=== PATIENT | female | born 1980 | race Caucasian/White ===

== ENCOUNTER → 2016-08-09 | Outpatient (CLI) | payer OTHER ==
[~2016-08-09] MED LIST: LEVO150T PO; NORE-39 PO
[2016-08-09 17:09] LABS: PREG INTERNAL NEGATIVE QC NEG CLEAR BACKGROUND; PREG INTERNAL POSITIVE QC POS CONTROL LINE
[2016-08-09 17:31] LABS: ALT/SGPT 19 U/L (12-78); AST/SGOT 7 U/L (15-37); BLOOD UREA NITROGEN 15 mg/dl (7-18); BUN/CREATININE RATIO 16.3 (10-20); CALCIUM 8.2 mg/dl (8.5-10.1); CARBON DIOXIDE 28 mmol/L (21-32); CHLORIDE 107 mmol/L (98-107); CREATININE 0.94 mg/dl (0.60-1.20); GLUCOSE 82 mg/dl (70-99); POTASSIUM 3.9 mmol/L (3.5-5.1); SODIUM 142 mmol/L (136-145)
[2016-08-09 17:42] LABS: ALB/GLOB RATIO 1.1 (0.9-2); ALKALINE PHOSPHATASE 68 U/L (45-117); THYROID STIMULATING HORMONE 0.316 uIu/ml (0.300-4.500)
[2016-08-11 16:05] LABS: THYROGLOBULIN 0.3 NG/ML (2.8-40.9)
== END | disposition home or self-care (01) ==
LOC: C.LAB 15:34
PROVIDERS: ATTEND Obstetrics & Gynecology
DX: N92.6 Irregular menstruation, unspecified (principal); C73 Malignant neoplasm of thyroid gland

== ENCOUNTER → 2016-12-16 | Outpatient (CLI) | payer OTHER ==
[2016-12-16 10:24] LABS: THYROID STIMULATING HORMONE 4.62 uIu/ml (0.300-4.500)
== END | disposition home or self-care (01) ==
LOC: C.LAB 08:59
PROVIDERS: ATTEND Internal Medicine Endocrinology, Diabetes & Metabolism
DX: E89.0 Postprocedural hypothyroidism (principal)

== ENCOUNTER → 2017-10-19 | Outpatient (CLI) | payer OTHER ==
[2017-10-19 10:26] LABS: ALBUMIN 3.6 gm/dl (3.4-5.0); ALKALINE PHOSPHATASE 61 U/L (45-117); ALT/SGPT 21 U/L (12-78); AST/SGOT 15 U/L (15-37); BLOOD UREA NITROGEN 11 mg/dl (7-18); CALCIUM 8.7 mg/dl (8.5-10.1); CARBON DIOXIDE 27 mmol/L (21-32); CREATININE 0.81 mg/dl (0.60-1.20); GLUCOSE 100 mg/dl (70-99); POTASSIUM 4.2 mmol/L (3.5-5.1); SODIUM 138 mmol/L (136-145); TOTAL PROTEIN 7.2 gm/dl (6.4-8.2)
== END | disposition home or self-care (01) ==
LOC: C.LAB 08:50
PROVIDERS: ATTEND Internal Medicine Endocrinology, Diabetes & Metabolism
DX: E89.0 Postprocedural hypothyroidism (principal); C73 Malignant neoplasm of thyroid gland; E28.2 Polycystic ovarian syndrome

== ENCOUNTER 2020-01-23 15:59 | Inpatient (IN) ==
[2020-01-23 16:41] LABS: Basophils # (auto) 0.02 K/uL (0-0.2); Basophils % (auto) 0.2 %; Eosinophils # (auto) 0.46 K/uL (0-0.5); Eosinophils % (auto) 3.6 %; Hemoglobin 12.4 g/dL (12.0-16.0); Immature Granulocytes # (auto) 0.03 K/uL (0.00-0.02); Immature Granulocytes % (auto) 0.2 %; Lymphocytes # (auto) 3.41 K/uL (1.2-3.4); Lymphocytes % (auto) 26.6 %; Mean Corpuscular Hemoglobin 28.6 pg (25-34); Mean Corpuscular Hgb Conc 33.5 g/dL (32-36); Mean Corpuscular Volume 85.3 fL (80-100); Mean Platelet Volume 9.5 fL (7.4-10.4); Monocytes # (auto) 0.99 K/uL (0.11-0.59); Monocytes % (auto) 7.7 %; Neutrophils % (auto) 61.7 %; Platelet Count 329 K/uL (130-400); RDW Coefficient of Variation 14.1 % (11.5-14.5); Red Blood Count 4.34 M/uL (4.2-5.4); White Blood Count 12.81 K/uL (4.8-10.8)
[2020-01-23] MEDS ORDERED: SODIUM CHLORIDE 0.9% 1000ML 1,000 ML IV ONE (16:46)
--- NOTE | 2020-01-23 16:52 | Emergency Department Note ---
Impression & Plan Hypercalcemia, NANCY (acute kidney injury), Weakness ED Provider Note NAME: MARIA T KING AGE: 39 SEX: F : 1980 ARRIVES VIA: Walk-In INFORMANT: [Patient] ED PROVIDER(S): [Devon Ramos MD] CHIEF COMPLAINT: Abnormal labs HISTORY OF PRESENT ILLNESS: The patient is a 39-year-old female who states that this past June, 6 to 7 months ago, she had neck surgery at [place]. Patient had some injury to her parathyroid glands. Patient has had issues with her calcium since. She is on medications for magnesium and calcium supplementation. Patient states that over the last couple of days, she has not quite felt herself. She had a dry mouth, she has been fatigued especially in the evening. She has been slightly nauseated. Today, her tongue was tingly and numb. The patient had lab work drawn and her calcium was high. Her creatinine was high. She does state that because of how she was feeling, she did not take her calcium last night or today. The patient spoke with her doctors office. She sees an biomedical engineering aide in [place]. He referred her here to the ER for IV fluids and repeat laboratory testing. Patient has not had fever, there has been no cough or congestion. She has not short of breath. No urinary complaints. She drinks plenty of fluid on a daily basis and her urine has been clear to yellow in color. REVIEW OF SYSTEMS: See HPI for pertinent positives and negatives. A total of ten systems were reviewed and were otherwise negative. PMHx/PSHx: See Below SOCIAL HISTORY: See Below. PHYSICAL EXAM: GENERAL: Patient is in no acute distress. HEENT: No acute trauma, normocephalic atraumatic, mucous membranes moist, no nasal congestion, no scleral icterus. NECK: No stridor, no adenopathy, no meningismus, trachea is midline. LUNGS: Clear to auscultation bilaterally, no wheeze, no rhonchi, breath sounds equal. HEART: Without murmurs gallops or rubs, regular rate and rhythm. ABDOMEN: Soft, nontender, bowel sounds positive, no hernias, no peritonitis. EXTREMITIES: No cyanosis or edema, full range of motion of all the joints without pain or difficulty, no signs for acute trauma. NEUROLOGIC: Oriented x 3, no acute motor or sensory deficits, no focal weakness. SKIN: No rash, no jaundice, no diaphoresis. DIFFERENTIAL DIAGNOSIS: Infection, dehydration, metabolic abnormality, hypo/hyperglycemia, h ypercalcemia, renal failure, acute kidney injury, UTI, electrolyte disturbance, anemia, hypoxia, cardiac sources, intracerebral event, toxicologic, neurologic, as well as other pathologies. EMERGENCY DEPARTMENT COURSE/PROCEDURES: ECG: Indication was weakness. The ECG shows a normal sinus rhythm with a rate of 75. There is no ST elevation, no PVCs. The QTc is 410. Continuous Cardiac Monitoring: An order was placed for continuous cardiac monitoring. The monitor shows a rate of 77 with normal sinus rhythm. MEDICAL DECISION MAKING: There is a mild leukocytosis with a white count of 12.8, this could be consisten t with infection or the stress of her situation. There is no anemia. There is a normal platelet count. The patient does have an elevation of her creatinine at 2.66. Her calcium is quite high at 12.5. Ionized calcium is elevated at 1.44. There is no liver enzyme elevation. The patient appears to be in a euthyroid state. testing is negative. Urinalysis shows some contamination, no obvious infection. ECG shows a sinus rhythm, no acute ischemia Patient received IV saline, 1.5 L. She is currently comfortable. Patient presents with a critically high calcium. She has acute kidney injury. I do think she requires further hydration and care. Hospitalization is warranted. I spoke to the patient, I talked with case management. The on-call hospitalist was consulted. Past Med/Surg History Medical History Abnormal uterine and vaginal bleeding, unspecified Abnormal uterine bleeding Cancer THYROID CANCER WITH 2 ROUNDS OF RADIOACTIVE IODINE. 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 Gestational diabetes Hypertension Pre-eclampsia PVCs (premature ventricular contractions) OCCASIONAL Surgical History (Updated 01/23/20 @ 19:58 by Jignesh Plascencia MD) H/O bilateral salpingectomy History of arthroscopy LEFT KNEE History of carpal tunnel release BILATERAL History of dilatation and curettage History of esophagogastroduodenoscopy (EGD) WITH EUS History of thyroidectomy, total 2006 @ [facility] Nausea and vomiting after administration of anesthetic agent S/P cholecystectomy S/P lymph node biopsy REMOVAL OF 5 LYMPH NODES IN THE NECK (2008) [facility] S/P T&A (status post tonsillectomy and adenoidectomy) S/P wisdom tooth extraction Status post neck dissection Status post surgery BRACHIOPLASTY Family History (Updated 12/11/18 @ 10:10 by Nancy Chavarria MD, FACOG) Grandmother (Paternal) Family hx of colon cancer Colorectal cancer Pancreatic cancer Heart disease Grandfather (Maternal) Family hx of colon cancer Basal cell adenocarcinoma Prostate cancer Heart disease Grandmother (Maternal) Family history of diabetes mellitus Colorectal cancer Diabetes Alzheimer disease Mother Alkaptonuria Leiomyoma of uterus Dyslipidemia Grandfather (Paternal) Brain cancer Other Hypertension Social History Smoking Status: Never smoker Second Hand Exposure: No; Hx Alcohol Use: No Hx Substance Use: No Preferred Language: Bengali Communication Ability: Effective Exchange Underwriting Consultant Required: No Beliefs That Will Affect Care: None Current Living Situation: Family Feels Safe at Home: Yes Assistive Devices: None Allergies Allergies Allergy/AdvReac Type Severity Reaction Status Date / Time morphine AdvReac Severe N/V Verified 01/23/20 17:10 Home Meds Home Medications Medication Instructions Recorded Confirmed liothyronine [Cytomel] 10 mcg PO QAM 08/27/18 01/23/20 metoprolol succinate 25 mg PO QAM 08/27/18 01/23/20 levonorgestrel 20 mcg/24 hours (6 1 device IU CONTINOUS ea 11/12/18 01/23/20 yrs) 52 mg intrauterine device Lactobacillus acidophilus 10,000 mmu cells PO HS 01/23/20 01/23/20 [Probiotic] calcitriol 0.5 mcg PO BID 01/23/20 01/23/20 calcium carbonate [Calcium 600] 600 mg PO TID 01/23/20 01/23/20 calcium carbonate [Tums] 200 mg PO DIRECTED PRN 01/23/20 01/23/20 levothyroxine 112 mcg PO QAM 01/23/20 01/23/20 loratadine 10 mg PO DAILY 01/23/20 01/23/20 magnesium oxide 400 mg PO TID 01/23/20 01/23/20 multivitamin 1 tab PO HS 01/23/20 01/23/20 Results & Data (ED) Vital Signs Vital Signs - 24 hr 01/23/20 16:04 01/23/20 17:24 01/23/20 17:30 Temperature 37.1 C Temperature Source Oral Pulse Rate 74 67 71 Pulse Rate [Left] Pulse Rhythm Regular Pulse Strength Normal Respiratory Rate 20 17 19 Respiratory Effort / Characteristics Non-Labored Spontaneous Respiratory Depth Normal Respiratory Pattern Regular Blood Pressure 195/105 H Blood Pressure [Right Arm] Blood Pressure Mean 135 Blood Pressure Mean [Right Arm] Blood Pressure Position Sitting Blood Pressure Position [Right Arm] Pulse Oximetry 98 Oxygen Delivery Method Room Air Sepsis Recent Fever Within 48 Hours No Sepsis New/Unexplained Change in Mental Status No Sepsis Action Taken by Nursing No Action Required 01/23/20 17:40 01/23/20 17:50 01/23/20 18:00 Temperature Temperature Source Pulse Rate 61 75 69 Pulse Rate [Left] Pulse Rhythm Pulse Strength Respiratory Rate 21 22 18 Respiratory Effort / Characteristics Respiratory Depth Respiratory Pattern Blood Pressure 148/89 H Blood Pressure [Right Arm] Blood Pressure Mean 105 Blood Pressure Mean [Right Arm] Blood Pressure Position Blood Pressure Position [Right Arm] Pulse Oximetry Oxygen Delivery Method Sepsis Recent Fever Within 48 Hours Sepsis New/Unexplained Change in Mental Status Sepsis Action Taken by Nursing 01/23/20 18:08 01/23/20 18:10 01/23/20 18:20 Temperature Temperature Source Pulse Rate 69 66 Pulse Rate [Left] 75 Pulse Rhythm Pulse Strength Respiratory Rate 18 19 21 Respiratory Effort / Characteristics Non-Labored Spontaneous Respiratory Depth Normal Respiratory Pattern Blood Pressure Blood Pressure [Right Arm] 148/89 H Blood Pressure Mean Blood Pressure Mean [Right Arm] 108 Blood Pressure Position Blood Pressure Position [Right Arm] Lying Pulse Oximetry 99 Oxygen Delivery Method Room Air Sepsis Recent Fever Within 48 Hours Sepsis New/Unexplained Change in Mental Status Sepsis Action Taken by Nursing 01/23/20 18:30 01/23/20 18:40 01/23/20 19:33 Temperature Temperature Source Pulse Rate 71 81 74 Pulse Rate [Left] Pulse Rhythm Pulse Strength Respiratory Rate 20 17 17 Respiratory Effort / Characteristics Respiratory Depth Respiratory Pattern Blood Pressure Blood Pressure [Right Arm] Blood Pressure Mean Blood Pressure Mean [Right Arm] Blood Pressure Position Blood Pressure Position [Right Arm] Pulse Oximetry Oxygen Delivery Method Sepsis Recent Fever Within 48 Hours Sepsis New/Unexplained Change in Mental Status Sepsis Action Taken by Nursing 01/23/20 19:40 01/23/20 19:41 01/23/20 19:50 Temperature Temperature Source Pulse Rate 72 71 77 Pulse Rate [Left] Pulse Rhythm Pulse Strength Respiratory Rate 23 16 24 Respiratory Effort / Characteristics Respiratory Depth Respiratory Pattern Blood Pressure 169/100 H Blood Pressure [Right Arm] Blood Pressure Mean 107 Blood Pressure Mean [Right Arm] Blood Pressure Position Blood Pressure Position [Right Arm] Pulse Oximetry 97 Oxygen Delivery Method Room Air Sepsis Recent Fever Within 48 Hours Sepsis New/Unexplained Change in Mental Status Sepsis Action Taken by Nursing 01/23/20 20:00 01/23/20 20:10 01/23/20 20:20 Temperature Temperature Source Pulse Rate 80 73 71 Pulse Rate [Left] Pulse Rhythm Pulse Strength Respiratory Rate 19 15 16 Respiratory Effort / Characteristics Respiratory Depth Respiratory Pattern Blood Pressure Blood Pressure [Right Arm] Blood Pressure Mean Blood Pressure Mean [Right Arm] Blood Pressure Position Blood Pressure Position [Right Arm] Pulse Oximetry Oxygen Delivery Method Sepsis Recent Fever Within 48 Hours Sepsis New/Unexplained Change in Mental Status Sepsis Action Taken by Nursing 01/23/20 20:30 01/23/20 20:40 01/23/20 20:50 Temperature Temperature Source Pulse Rate 81 71 71 Pulse Rate [Left] Pulse Rhythm Pulse Strength Respiratory Rate 20 23 22 Respiratory Effort / Characteristics Respiratory Depth Respiratory Pattern Blood Pressure Blood Pressure [Right Arm] Blood Pressure Mean Blood Pressure Mean [Right Arm] Blood Pressure Position Blood Pressure Position [Right Arm] Pulse Oximetry Oxygen Delivery Method Sepsis Recent Fever Within 48 Hours Sepsis New/Unexplained Change in Mental Status Sepsis Action Taken by Nursing 01/23/20 21:00 Temperature Temperature Source Pulse Rate 78 Pulse Rate [Left] Pulse Rhythm Pulse Strength Respiratory Rate 17 Respiratory Effort / Characteristics Respiratory Depth Respiratory Pattern Blood Pressure Blood Pressure [Right Arm] Blood Pressure Mean Blood Pressure Mean [Right Arm] Blood Pressure Position Blood Pressure Position [Right Arm] Pulse Oximetry Oxygen Delivery Method Sepsis Recent Fever Within 48 Hours Sepsis New/Unexplained Change in Mental Status Sepsis Action Taken by Group Home Medications Current Medication List: was personally reviewed by me Laboratory Data Attestation: I reviewed the patient's lab results. Result diagrams: 01/23/20 16:21 01/23/20 17:17 Lab Results 01/23/20 01/23/20 01/23/20 Range/Units 16:21 16:21 17:17 WBC 12.81 H (4.8-10.8) K/uL RBC 4.34 (4.2-5.4) M/uL Hgb 12.4 (12.0-16.0) g/dL Hct 37.0 (37-47) % MCV 85.3 (80-100) fL MCH 28.6 (25-34) pg MCHC 33.5 (32-36) g/dL RDW Std Deviation 44.0 (36.4-46.3) fL RDW Coeff of Angelica 14.1 (11.5-14.5) % Plt Count 329 (130-400) K/uL MPV 9.5 (7.4-10.4) fL Immature Gran % (Auto) 0.2 % Neut % (Auto) 61.7 % Lymph % (Auto) 26.6 % [place] % (Auto) 7.7 % Eos % (Auto) 3.6 % Baso % (Auto) 0.2 % Neut # (Auto) 7.90 H (1.4-6.5) K/uL Lymph # (Auto) 3.41 H (1.2-3.4) K/uL [place] # (Auto) 0.99 H (0.11-0.59) K/uL Eos # (Auto) 0.46 (0-0.5) K/uL Baso # (Auto) 0.02 (0-0.2) K/uL Immature Gran # (Auto) 0.03 H (0.00-0.02) K/uL Sodium 138 (136-145) mmol/L Potassium (3.5-5.1) mmol/L Chloride 100 (98-107) mmol/L Carbon Dioxide 30 (21-32) mmol/L Anion Gap 8.0 (3-11) BUN 32 H (7-18) mg/dl Creatinine 2.66 H D (0.6-1.2) mg/dl Est Cr Clr Drug Dosing 37.4 ml/min Est GFR ( Amer) 25.0 Est GFR (Non-Af Amer) 21.6 BUN/Creatinine Ratio 12.1 (10-20) Glucose 90 (70-99) mg/dl Calcium 12.5 H* (8.5-10.1) mg/dl Ionized Calcium (1.12-1.32) mmol/L Magnesium (1.8-2.4) mg/dl Total Bilirubin 0.4 (0.2-1) mg/dl AST (15-37) U/L ALT 29 (12-78) U/L Alkaline Phosphatase 59 (45-117) U/L Total Protein 7.6 (6.4-8.2) gm/dl Albumin 3.6 (3.4-5.0) gm/dl Globulin 4.0 (2.5-4.0) gm/dl Albumin/Globulin Ratio 0.9 (0.9-2) TSH 1.030 (0.300-4.500) uIu/ml HCG, Qual Negative (Negative) Urine Color Urine Appearance (Clear) Urine pH (4.5-7.5) Ur Specific [place] (1.000-1.030) Urine Protein (Negative) Urine Glucose (UA) (Negative) Urine Ketones (Negative) Urine Blood (Negative) Urine Nitrite (Negative) Urine Bilirubin (Negative) Urine Urobilinogen (Negative) Ur Leukocyte Esterase (Negative) Urine WBC (Auto) (0-5) /hpf Urine RBC (Auto) (0-4) /hpf U Hyaline Cast (Auto) (0-5) /lpf U Epithel Cells (Auto) (0-5) /lpf Urine Bacteria (Auto) (Negative) 01/23/20 01/23/20 01/23/20 Range/Units 17:17 17:17 18:45 WBC (4.8-10.8) K/uL RBC (4.2-5.4) M/uL Hgb (12.0-16.0) g/dL Hct (37-47) % MCV (80-100) fL MCH (25-34) pg MCHC (32-36) g/dL RDW Std Deviation (36.4-46.3) fL RDW Coeff of Angelica (11.5-14.5) % Plt Count (130-400) K/uL MPV (7.4-10.4) fL Immature Gran % (Auto) % Neut % (Auto) % Lymph % (Auto) % [place] % (Auto) % Eos % (Auto) % Baso % (Auto) % Neut # (Auto) (1.4-6.5) K/uL Lymph # (Auto) (1.2-3.4) K/uL [place] # (Auto) (0.11-0.59) K/uL Eos # (Auto) (0-0.5) K/uL Baso # (Auto) (0-0.2) K/uL Immature Gran # (Auto) (0.00-0.02) K/uL Sodium (136-145) mmol/L Potassium 3.5 (3.5-5.1) mmol/L Chloride (98-107) mmol/L Carbon Dioxide (21-32) mmol/L Anion Gap (3-11) BUN (7-18) mg/dl Creatinine (0.6-1.2) mg/dl Est Cr Clr Drug Dosing ml/min Est GFR ( Amer) Est GFR (Non-Af Amer) BUN/Creatinine Ratio (10-20) Glucose (70-99) mg/dl Calcium (8.5-10.1) mg/dl Ionized Calcium 1.44 H (1.12-1.32) mmol/L Magnesium 2.3 (1.8-2.4) mg/dl Total Bilirubin (0.2-1) mg/dl AST 18 (15-37) U/L ALT (12-78) U/L Alkaline Phosphatase (45-117) U/L Total Protein (6.4-8.2) gm/dl Albumin (3.4-5.0) gm/dl Globulin (2.5-4.0) gm/dl Albumin/Globulin Ratio (0.9-2) TSH (0.300-4.500) uIu/ml HCG, Qual (Negative) Urine Color Yellow Urine Appearance Clear (Clear) Urine pH 6.0 (4.5-7.5) Ur Specific [place] 1.012 (1.000-1.030) Urine Protein Negative (Negative) Urine Glucose (UA) Negative (Negative) Urine Ketones Negative (Negative) Urine Blood Trace H (Negative) Urine Nitrite Negative (Negative) Urine Bilirubin Negative (Negative) Urine Urobilinogen Negative (Negative) Ur Leukocyte Esterase Trace H (Negative) Urine WBC (Auto) 5-10 H (0-5) /hpf Urine RBC (Auto) 0-4 (0-4) /hpf U Hyaline Cast (Auto) 1-5 (0-5) /lpf U Epithel Cells (Auto) >30 H (0-5) /lpf Urine Bacteria (Auto) Negative (Negative) Administered Medications Discontinued Medications Sodium Chloride (Nss 1000ml) 1,000 mls @ 999 mls/hr IV .Q1H1M ONE Stop: 01/23/20 17:46 Last Infusion: 01/23/20 18:39 Dose: 0 mls/hr Documented by: [id number] Admin: 01/23/20 17:20 Dose: 999 mls/hr Documented by: [id number] Sodium Chloride (Nss 1000ml) 500 mls @ 999 mls/hr IV .Q31M ONE Stop: 01/23/20 17:55 Last Infusion: 01/23/20 19:42 Dose: 0 mls/hr Documented by: [id number] Admin: 01/23/20 18:52 Dose: 999 mls/hr Documented by: [id number] Discharge Plan Visit Data Chief Complaint: Abnormal Labs/Diagnostic Testing Stated Complaint: ELEVATED CALCIUM LEVELS ED Provider: Devon Ramos Discharge Problem: Hypercalcemia, NANCY (acute kidney injury), Weakness Patient Disposition: Admitted As Inpatient Condition: Good Forms Stand Alone Forms: [facility] Prescriptions Prescriptions: No Action Mirena 20 mcg/24 hours (5 yrs) 52 mg intrauterine device 1 device IU CONTINOUS RF: 0 liothyronine [Cytomel] 5 mcg Tablet 10 mcg PO QAM RF: 0 metoprolol succinate 25 mg Tablet Extended Release 24 Hr 25 mg PO QAM RF: 0 levothyroxine 112 mcg Tablet 112 mcg PO QAM RF: 0 multivitamin Tablet 1 tab PO HS RF: 0 calcium carbonate [Calcium 600] 600 mg calcium (1,500 mg) Tablet 600 mg PO TID RF: 0 magnesium oxide 400 mg (241.3 mg magnesium) Tablet 400 mg PO TID RF: 0 calcitriol 0.5 mcg capsule 0.5 mcg PO BID RF: 0 calcium carbonate [Tums] 200 mg calcium (500 mg) Tablet,Chewable 200 mg PO DIRECTED PRN (Reason: EXTRA CALCIUM) RF: 0 loratadine 10 mg Tablet 10 mg PO DAILY RF: 0 Probiotic 10 billion cell Capsule 10,000 mmu cells PO HS RF: 0 Referrals Referrals: PCP,NO [Primary Care Provider] -
--- NOTE | 2020-01-23 16:53 | Electrocardiogram Report ---
Test Reason : Blood Pressure : / mmHG Vent. Rate : 075 BPM Atrial Rate : 075 BPM P-R Int : 144 ms QRS Dur : 092 ms QT Int : 368 ms P-R-T Axes : 025 004 004 degrees QTc Int : 410 ms Normal sinus rhythm Normal ECG When compared with ECG of 09-OCT-2018 15:06, T wave amplitude has decreased in Anterior leads Confirmed by Devante Small ([id number] on 01/23/2020 4:53:27 PM Referred By: SELF Confirmed By:William Small
[2020-01-23 17:04] LABS: Albumin Globulin Ratio 0.9 (0.9-2); Albumin Level 3.6 gm/dl (3.4-5.0); BUN Creatinine Ratio 12.1 (10-20); Bilirubin,Total 0.4 mg/dl (0.2-1); Calcium 12.5 mg/dl (8.5-10.1); Creatinine Clr Calc Pharmacy 37.4 ml/min; Est GFR (Non-African American) 21.6; Total Protein 7.6 gm/dl (6.4-8.2)
[2020-01-23] MEDS ORDERED: SODIUM CHLORIDE 0.9% 1000ML 500 ML IV ONE (17:25)
[2020-01-23 17:35] LABS: Thyroid Stimulating Hormone 1.03 uIu/ml (0.300-4.500)
[2020-01-23 17:41] LABS: Potassium 3.5 mmol/L (3.5-5.1); Pregnancy Test, Serum Negative (Negative)
[2020-01-23 17:46] LABS: Magnesium 2.3 mg/dl (1.8-2.4)
[2020-01-23 19:10] LABS: Appearance Urine Clear (Clear); Bacteria Urine Automated Negative (Negative); Bilirubin Urine Negative (Negative); Blood Urine Trace (Negative); Color Urine Yellow; Epithelial Cell Urine Auto >30 /lpf (0-5); Glucose Urine UA Negative (Negative); Ketones Urine Negative (Negative); Leukocyte Esterase Urine Trace (Negative); Nitrite Urine Negative (Negative); Protein Urine Negative (Negative); Specific Gravity Urine 1.012 (1.000-1.030); Urobilinogen Urine Negative (Negative)
[2020-01-23 19:27] LABS: RBC Urine Automated 0-4 /hpf (0-4)
--- NOTE | 2020-01-23 20:29 | History & Physical Report ---
Date of Service January 23, 2020 Assessment & Plan (1) Hypercalcemia: Sarah is a 39-year-old female with a past medical history of thyroid cancer status post 3 rounds of I 131 and 3 surgical interventions therapy no longer avid last 6 to 7 months ago, preeclampsia gestational diabetes, and iatrogenic parathyroid hypoparathyroidism due to parathyroid removal during thyroid surgery who presents with dry mouth, fatigue, nausea. with concern for hypercalcemia. Hypercalcemia 2/2 over repletion of iatrogenic hypoparathyroidism Patient with 13-year history of thyroid cancer with 3 surgeries, at last surgery she had subsequent development of hypoparathyroid symptoms of hypocalcemia with pathology confirmation that she had had parathyroid damage. She was placed on calcitriol on 08/2019 which was increased to 1 tab twice daily around . She has also been taking 1 g 3 times daily of calcium, magnesium 400 3 times daily, and multivitamin daily in addition to Tums as needed for tingling or muscle spasm prior to admission. -Calcium prior to admission 13.4, down trended to 12.5 with supportive care in ED - Suspect 2/2 excess repletion Ionized calcium elevated at 1.4 TSH 1.03 Received 1500 cc NSS in ED hold calcitriol, calcium supplements -Normosol-R 150 cc/h BMP every 6 hours + Ca Defer bisphosphonates, calcitonin, loop diuretics Hypertension 2/2 hypercalcemia Management as above Acute Kidney Injury by ROOSEVELT/KDIGO, appx 2.5 times increase from baseline value - Baseline <1, acutely elevated Cr to 2.6 - suspect 2/2 acute hypercalcemia - Fluids and aggressive tx as above - Non-oliguric - BMP as above No EKG changes Diet: Calcium, as well as above DVT prophylaxis: Lovenox CODE STATUS: Full code Disposition: Med/Tele (2) Hypothyroid: (3) Parathyroid abnormality: History of Present Illness Chief Complaint: Weakness, Fatigue, Nausea Primary Care Provider: NO PCP Sarah is a 39-year-old female with a past medical history of thyroid cancer status post 3 rounds of I 131 and 3 surgical interventions therapy no longer avid last 6 to 7 months ago, preeclampsia gestational diabetes, and iatrogenic parathyroid hypoparathyroidism due to parathyroid removal during thyroid surgery who presents with dry mouth, fatigue, nausea. with concern for hypercalcemia. Family reports that she has a history of hypothyroidism due to surgical intervention of thyroid cancer. She has had thyroid cancer for 13 years and had 3 rounds of I-131 therapy but is no longer evident. She has also had 3 surgical interventions with her last 6 to 7 months ago. Following her last surgical intervention she developed weakness and fatigue and was found to have hypocalcemia thought to be due to iatrogenic parathyroid removal which was subse quently confirmed by pathology. Started on on 09/07/2019 and was increased from 1 tab daily to 1 tab twice daily in . She has also been on a 1 g calcium supplement 3 times daily, magnesium 400 mg 3 times daily, multivitamin daily in addition to Tums as needed for tingling/muscle spasm. She has her labs and blood work followed by her music video director who is Dr. Toussaint in [facility]. The last week she has developed progressive dry mouth, fatigue, intermittent nausea worsening throughout the day, and dramatic increase in thirst. She normally has loose bowels, and has noted that she has had relatively normal formed bowel movements which is constipated for her. 1 day prior to presentation he fell asleep and was napping in the evening which is highly abnormal for her and she was concerned so she called her physician for lab work which revealed hypercalcemia 13.4 and she was recommended to stop supplements, stop calcitriol, and present to the emergency department for further evaluation and treatment. She had taken 1 calcitriol morning of admission, and had missed a dose the evening prior to presentation. She is not taking any calcium supplements and approximately 36 hours since presentation as she thought her calcium might be off. She denies fever, chills, sweats, cough, shortness of breath, chest pain, chest pressure. Feels globally tired, but has no focal weakness. No vision change. She has been extremely thirsty, and drinking over 10 bottles of water per day since her symptoms started. She has not had no dysuria or hematuria. She reports her son had a runny nose last week, but no other symptoms and no fever. She has not had any sick contacts. Medical history: Reviewed Surgical history: Reviewed, updated Medications: Reviewed Allergies: Reviewed. She has a severe nausea reaction to morphine which is required admission in the past. Family history: Noncontributory Social: Denies tobacco, alcohol, and recreational drug use. She lives at home with her and son. Independently ambulatory. No sick contacts at home, son with a slight runny nose for 1 week. CODE STATUS: Full code Allergies Allergy/AdvReac Type Severity Reaction Status Date / Time morphine AdvReac Severe N/V Verified 01/23/20 17:10 Home Medications Home Medications Medication Instructions Recorded Confirmed Type liothyronine [Cytomel] 10 mcg PO QAM 08/27/18 01/23/20 History metoprolol succinate 25 mg PO QAM 08/27/18 01/23/20 History levonorgestrel 20 mcg/24 hours (6 1 device IU CONTINOUS ea 11/12/18 01/23/20 History yrs) 52 mg intrauterine device Lactobacillus acidophilus 10,000 mmu cells PO HS 01/23/20 01/23/20 History [Probiotic] calcitriol 0.5 mcg PO BID 01/23/20 01/23/20 History calcium carbonate [Calcium 600] 600 mg PO TID 01/23/20 01/23/20 History calcium carbonate [Tums] 200 mg PO DIRECTED PRN 01/23/20 01/23/20 History levothyroxine 112 mcg PO QAM 01/23/20 01/23/20 History loratadine 10 mg PO DAILY 01/23/20 01/23/20 History magnesium oxide 400 mg PO TID 01/23/20 01/23/20 History multivitamin 1 tab PO HS 01/23/20 01/23/20 History Past Med/Surg History Medical History Abnormal uterine and vaginal bleeding, unspecified Abnormal uterine bleeding Cancer THYROID CANCER WITH 2 ROUNDS OF RADIOACTIVE IODINE. 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 Gestational diabetes Hypertension Pre-eclampsia PVCs (premature ventricular contractions) OCCASIONAL Surgical History (Updated 01/23/20 @ 19:58 by Jignesh Plascencia MD) H/O bilateral salpingectomy History of arthroscopy LEFT KNEE History of carpal tunnel release BILATERAL History of dilatation and curettage History of esophagogastroduodenoscopy (EGD) WITH EUS History of thyroidectomy, total 2006 @ [facility] Nausea and vomiting after administration of anesthetic agent S/P cholecystectomy S/P lymph node biopsy REMOVAL OF 5 LYMPH NODES IN THE NECK (2008) [facility] S/P T&A (status post tonsillectomy and adenoidectomy) S/P wisdom tooth extraction Status post neck dissection Status post surgery BRACHIOPLASTY Family History (Updated 12/11/18 @ 10:10 by Nancy Chavarria MD, FACOG) Grandmother (Paternal) Family hx of colon cancer Colorectal cancer Pancreatic cancer Heart disease Grandfather (Maternal) Family hx of colon cancer Basal cell adenocarcinoma Prostate cancer Heart disease Grandmother (Maternal) Family history of diabetes mellitus Colorectal cancer Diabetes Alzheimer disease Mother Alkaptonuria Leiomyoma of uterus Dyslipidemia Grandfather (Paternal) Brain cancer Other Hypertension Social History Smoking Status: Never smoker Second Hand Exposure: No; Do You Dip or Chew Tobacco: No; Hx Alcohol Use: No Hx Substance Use: No Preferred Language: Chadian Communication Ability: Effective Principal Systems Architect Required: No Beliefs That Will Affect Care: None Current Living Situation: Spouse and Family Other Information That Helps Us Care for You: No Feels Safe at Home: Yes Safety Concerns: Feels Safe At This Time Assistive Devices: None Review of Systems Review of Systems: All systems reviewed & are unremarkable except as noted in HPI & below Physical Exam Physical Exam: General: A&Ox3. NAD. Cooperative. HEENT: Atraumatic, normocephalic. Visual acuity grossly intact. No diplopia. Pulm: CTAB A&P. -wheezes, -rales, -rhonchi. Symmetrical chest rise. No increase work of breathing. No respiratory distress. Cardiac: RRR, -mrg. Radial pulses intact and symmetrical. Abdominal: Nontender, nondistended, soft. BS present. CRANIAL NERVES: II: Pupils equal and reactive, no relative afferent pupillary defect, no VF cuts III, IV, : EOM intact, no gaze preference or deviation, no nystagmus. V: normal sensation in V1, V2, and V3 segments bilaterally VII: no asymmetry, no nasolabial fold flattening VIII: normal hearing to speech IX, X: normal palatal elevation, no uvular deviation XI: 5/5 head turn and 5/5 shoulder shrug bilaterally XII: midline tongue protrusion MOTOR: RUE: 5/5 Shoulder internal rotation, external rotation, flexion, extension, abduction, adduction 5/5 Elbow flexion/extension, wrist flexion/extension 5/5 mold maker plaster strength, finger flexion/extension, interosseus LUE: 5/5 Shoulder internal rotation, external rotation, flexion, extension, abduction, adduction 5/5 Elbow flexion/extension, wrist flexion/extension 5/5 mold maker plaster strength, finger flexion/extension, interosseus RLE: 5/5 to hip flexion/extension, knee flexion/extension, ankle dorsiflexion/plantar flexion LLE: 5/5 to hip flexion/extension, knee flexion/extension, ankle dorsiflexion/plantarflexion REFLEXES: 2/4 biceps, and achilles DTR without asymmetry. No clonus. SENSORY: Normal to touch in distal upper and lower extremities without deficit or asymmetry Results & Data Results & Data ([facility]) Vital Signs (Past 12 Hours) Vital Signs Temp Pulse Pulse Resp BP BP Pulse Ox 01/23/20 19:41 71 16 01/23/20 19:40 72 23 169/100 H 97 01/23/20 19:33 74 17 01/23/20 18:40 81 17 01/23/20 18:30 71 20 01/23/20 18:20 66 21 01/23/20 18:10 69 19 01/23/20 18:08 75 18 148/89 H 99 01/23/20 18:00 69 18 01/23/20 17:50 75 22 148/89 H 01/23/20 17:40 61 21 01/23/20 17:30 71 19 01/23/20 17:24 67 17 01/23/20 16:04 37.1 C 74 20 195/105 H 98 Supervising Physician Co-Signing Physician Notes Patient seen and examined, chart reviewed, case discussed with Dr. Plascencia and I agree with his assessment and plan as documented above. Briefly, patient is a 39 year old female with history of thyroid cancer s/p I 131 and surgical intervention complicated by surgical removal with subsequent hypocalcemia. Patient is on calcium supplementation, presents today with moderate hypercalcemia, mildly symptomatic. On exam she is afebrile, HD stable, NAD Skin - warm, dry, intact, no rashes HEENT - NC/AT, PERRL, EOMI, slightly dry mucus membranes Heart - +S1/S2, regular, no m/r/g Lungs - CTA Abd- +BS, soft, NT/ND Ext - No edema Neuro - non-focal Labs and images reviewed significant for Ca=13.4 --> 12.5 with hydration. Ionized calcium = 1.44. BUN=32, Cr=2.66 from normal baseline of 0.93 on 11/15/19 Normal PO4 at 3.4 Assessment/Plan - 39yo C female with history of hypocalcemia secondary to parathyroidectomy presenting with iatrogenic hypercalcemia, NANCY, dehydration -IVF - Normosol 200mL/hr -Trend chemistry, Ca and PO4 q 6 hours -Remainder of plan as above Resident Activity Tracking Resident Involvement: Resident Care Provided Care Provided: Adult Hospital Medicine
[2020-01-23] MEDS ORDERED: ACETAMINOPHEN 325 MG TAB PO PRN (23:00)
[2020-01-23] MEDS: ENOXAPARIN INJ 40 MG/0.4 ML SYR SQ SCH (23:58)
[2020-01-23] MEDS: NORMOSOL-R 1,000 ML IV SCH (23:59)
--- NOTE | 2020-01-24 00:11 | Billing Data ---
Date of Service January 23, 2020 Coding Level of Care Code 04181 Initial Inpt Care Lvl 2
[2020-01-24 00:28] LABS: BUN Creatinine Ratio 13.8 (10-20); Calcium 10.4 mg/dl (8.5-10.1); Creatinine Clr Calc Pharmacy 43.2 ml/min; Est GFR (African American) 29.5; Est GFR (Non-African American) 25.5; Potassium 3.2 mmol/L (3.5-5.1)
[2020-01-24] MEDS: NORMOSOL-R 1,000 ML IV SCH ×4 (04:51→19:44)
[2020-01-24] MEDS: LEVOTHYROXINE SODIUM 112 MCG TABLET PO SCH (05:33)
[2020-01-24 06:26] LABS: BUN Creatinine Ratio 13.8 (10-20); Calcium 9.7 mg/dl (8.5-10.1); Creatinine Clr Calc Pharmacy 47.4 ml/min; Est GFR (African American) 33.1; Est GFR (Non-African American) 28.6; Potassium 3.6 mmol/L (3.5-5.1)
[2020-01-24] MEDS: LIOTHYRONINE SODIUM 5 MCG TAB PO SCH (07:50)
[2020-01-24] MEDS: METOPROLOL SUCC 25MG EXT REL TAB PO SCH (07:50)
[2020-01-24 11:08] LABS: BUN Creatinine Ratio 13.1 (10-20); Calcium 10.1 mg/dl (8.5-10.1); Creatinine Clr Calc Pharmacy 48.1 ml/min; Est GFR (African American) 33.7; Potassium 3.7 mmol/L (3.5-5.1)
--- NOTE | 2020-01-24 14:19 | Hospitalist Progress Note ---
Date of Service January 24, 2020 Assessment & Plan (1) Hypercalcemia: Sarah is a 39-year-old female with h/o thyroid cancer (s/p 3 rounds of I 131 and 3 surgical interventions therapy) and iatrogenic hypoparathyroidism/hypothyroidism (2/2 surgical removal) who was admitted to [facility] on 01/22 for hypercalcemia. Hypercalcemia - suspect 2/2 excess repletion - was increased from Calcitriol daily to BID 2 months ago and did not have consistent laboratory monitoring of Calcium - Ca on admission 13.4 --> 10.1 today, s/p NSS 1500cc in ED and Normosol 200cc/hr - patient currently asymptomatic - continue to hold calcitriol, calcium supplements - spoke to patient's Produce Team Lead (Dr. Toussaint: [phone]) who recommends re-starting Calcitriol daily (rather than BID) and regular Ca supplementation - recommended starting home meds either at discharge or when Ca < 9.5 - continue Normosol-R 200 cc/hr - consider increasing IVF and/or Calcitonin vs Bisphosphonates if Ca increases and/or patient experiences symptoms - BMP/Ca Q6H for today, serial BMP/Ca tomorrow AM Acute Kidney Injury - BUN 32/Cr 2.32 --> BUN 27/Cr 2.08 after IVFs - BUN:Cr 13.1 - baseline Cr 0.9-1 - suspect 2/2 hypercalcemia - continue Normosol-R 200 cc/hr as above - trend BMP as above Post-surgical Hypothyroidism - TSH 1.03 on admission - continue home meds: Synthroid and Cytomel Hypertension - continue home meds: Toprol XL 25 mg PO QAM FEN/GI: Regular DVT prophylaxis: Lovenox Code Status: Full code Disposition: Med/Tele, tentative discharge tomorrow if medically stable (2) Hypothyroid: (3) Parathyroid abnormality: (4) NANCY (acute kidney injury): Admission and Anticipated Discharge Date Admission Date: January 23, 2020 Supervising Physician Co-Signing Physician Notes I also saw the patient with the resident physician and confirmed figueredo portions of the clinical history and physical examination. I agree with the impression and plan as noted in the resident documentation. Exam Alert and oriented. No complaints this morning. She is afebrile. Blood pressure 137/84, pulse 88, respiratory 16, pulse oximetry 100% on room air. Cardiovascular regular rate and rhythm. No murmurs appreciated. Lungs clear throughout. Extremities without edema Data Creatinine 2.08, potassium 3.7, calcium 10.1. IMPRESSION/PLAN Hypercalcemia NANCY Dehydration I agree with the impression and plan as noted in the resident documentation. If she has return of GERD symptoms consider H2 avni. Subjective NAEO. Patient is doing well today and denies dry mouth, mouth tingling, fatigue, N/V. Reports that her son came home with a suspected viral URI one week ago which led to patient taking Zinc and other supplements - subsequently had GERD a nd took Tums over the last several days. Stopped taking Zinc several days ago and denies current heartburn, epigastric pain or regurgitation. Reports that her Produce Team Lead (Dr. Toussaint) increased her Calcitriol from daily to BID two months ago but she did not have f/u BMP/Ca to determine Ca level on new dose. Review of Systems Constitutional: no fever, no chills and no fatigue Ear, Nose, Mouth, Throat: no dry mouth Respiratory: no cough and no dyspnea Cardiovascular: no chest pain and no palpitations Gastrointestinal: no abdominal pain, no nausea and no vomiting Neurologic: no generalized weakness, no tremor(s), no syncope, no headache(s) and no confusion Psychiatric: no behavioral changes Physical Exam Constitutional: WD/WN, vitals as above Eyes: PERRL, conjunctivae normal, anicteric sclerae Respiratory: normal respiratory effort, lungs clear to auscultation Cardiovascular: RRR, no murmur, no edema Gastrointestinal (Abdomen): normal bowel sounds, soft, nontender, no hepatosplenomegaly Skin: no rashes, warm and dry Neurologic: patellar DTR's 2+ bilat, sensation intact and PERRL, EOMI, accommodation nl, no face palsy, no dysarthria Psychiatric: A+Ox3, euthymic affect Results & Data Results & [facility] ([facility]) Vital Signs (Past 12 Hours) Vital Signs Temp Pulse Resp BP Pulse Ox 01/24/20 11:20 37 C 79 16 152/90 H 97 01/24/20 07:42 36.8 C 18 130/83 91 01/24/20 03:00 36.6 C 61 16 138/86 98 Resident Activity Tracking Resident Involvement: Resident Care Provided Care Provided: Adult [facility] Medicine
[2020-01-24 17:31] LABS: BUN Creatinine Ratio 12.7 (10-20); Calcium 9.6 mg/dl (8.5-10.1); Creatinine Clr Calc Pharmacy 50.2 ml/min; Est GFR (African American) 35.5; Est GFR (Non-African American) 30.6; Potassium 3.6 mmol/L (3.5-5.1)
[2020-01-24] MEDS: ENOXAPARIN INJ 40 MG/0.4 ML SYR SQ SCH (22:19)
[2020-01-24 23:45] LABS: BUN Creatinine Ratio 11.9 (10-20); Creatinine Clr Calc Pharmacy 47.6 ml/min; Est GFR (African American) 33.3; Est GFR (Non-African American) 28.7; Potassium 3.5 mmol/L (3.5-5.1)
[2020-01-25] MEDS: NORMOSOL-R 1,000 ML IV SCH ×3 (00:08→10:23)
[2020-01-25] MEDS: LEVOTHYROXINE SODIUM 112 MCG TABLET PO SCH (06:36)
[2020-01-25 06:48] LABS: Basophils # (auto) 0.02 K/uL (0-0.2); Basophils % (auto) 0.2 %; Eosinophils # (auto) 0.38 K/uL (0-0.5); Eosinophils % (auto) 4.2 %; Hematocrit (blood only) 34.7 % (37-47); Hemoglobin 11.4 g/dL (12.0-16.0); Immature Granulocytes # (auto) 0.03 K/uL (0.00-0.02); Immature Granulocytes % (auto) 0.3 %; Lymphocytes # (auto) 2.42 K/uL (1.2-3.4); Lymphocytes % (auto) 26.6 %; Mean Corpuscular Hemoglobin 27.7 pg (25-34); Mean Corpuscular Hgb Conc 32.9 g/dL (32-36); Mean Corpuscular Volume 84.4 fL (80-100); Mean Platelet Volume 9.2 fL (7.4-10.4); Monocytes # (auto) 0.54 K/uL (0.11-0.59); Monocytes % (auto) 5.9 %; Neutrophils # (auto) 5.71 K/uL (1.4-6.5); Neutrophils % (auto) 62.8 %; Platelet Count 286 K/uL (130-400); RDW Standard Deviation 43.4 fL (36.4-46.3); Red Blood Count 4.11 M/uL (4.2-5.4)
[2020-01-25 07:18] LABS: BUN Creatinine Ratio 11.4 (10-20); Calcium 8.8 mg/dl (8.5-10.1); Creatinine Clr Calc Pharmacy 53.9 ml/min; Est GFR (African American) 38.3; Magnesium 2.1 mg/dl (1.8-2.4); Phosphorus 2.7 mg/dl (2.5-4.9); Potassium 3.6 mmol/L (3.5-5.1)
[2020-01-25] MEDS: LIOTHYRONINE SODIUM 5 MCG TAB PO SCH (07:59)
[2020-01-25] MEDS: METOPROLOL SUCC 25MG EXT REL TAB PO SCH (07:59)
--- NOTE | 2020-01-25 09:54 | Discharge Summary ---
Date of Service January 25, 2020 Admission HPI Per Admitting Provider Sarah is a 39-year-old female with a past medical history of thyroid cancer status post 3 rounds of I 131 and 3 surgical interventions therapy no longer avid last 6 to 7 months ago, preeclampsia gestational diabetes, and iatrogenic parathyroid hypoparathyroidism due to parathyroid removal during thyroid surgery who presents with dry mouth, fatigue, nausea. with concern for hypercalcemia. Family reports that she has a history of hypothyroidism due to surgical intervention of thyroid cancer. She has had thyroid cancer for 13 years and had 3 rounds of I-131 therapy but is no longer evident. She has also had 3 surgical interventions with her last 6 to 7 months ago. Following her last surgical intervention she developed weakness and fatigue and was found to have hypocalcemia thought to be due to iatrogenic parathyroid removal which was subsequently confirmed by pathology. Started on on 09/07/2019 and was increased from 1 tab daily to 1 tab twice daily in . She has also been on a 1 g calcium supplement 3 times daily, magnesium 400 mg 3 times daily, multivitamin daily in addition to Tums as needed for tingling/muscle spasm. She has her labs and blood work followed by her family support worker who is Dr. Toussaint in [facility]. The last week she has developed progressive dry mouth, fatigue, intermittent nausea worsening throughout the day, and dramatic increase in thirst. She normally has loose bowels, and has noted that she has had relatively normal formed bowel movements which is constipated for her. 1 day prior to presentation he fell asleep and was napping in the evening which is highly abnormal for her and she was concerned so she called her physician for lab work which revealed hypercalcemia 13.4 and she was recommended to stop supplements, stop calcitriol, and present to the emergency department for further evaluation and treatment. She had taken 1 calcitriol morning of admission, and had missed a dose the evening prior to presentation. She is not taking any calcium supplements and approximately 36 hours since presentation as she thought her calcium might be off. She denies fever, chills, sweats, cough, shortness of breath, chest pain, chest pressure. Feels globally tired, but has no focal weakness. No vision change. She has been extremely thirsty, and drinking over 10 bottles of water per day since her symptoms started. She has not had no dysuria or hematuria. She reports her son had a runny nose last week, but no other symptoms and no fever. She has not had any sick contacts. Medical history: Reviewed Surgical history: Reviewed, updated Medications: Reviewed Allergies: Reviewed. She has a severe nausea reaction to morphine which is required admission in the past. Family history: Noncontributory Social: Denies tobacco, alcohol, and recreational drug use. She lives at home with her and son. Independently ambulatory. No sick contacts at home, son with a slight runny nose for 1 week. CODE STATUS: Full code Admission Exam Per Admitting Provider General: A&Ox3. NAD. Cooperative. HEENT: Atraumatic, normocephalic. Visual acuity grossly intact. No diplopia. Pulm: CTAB A&P. -wheezes, -rales, -rhonchi. Symmetrical chest rise. No increase work of breathing. No respiratory distress. Cardiac: RRR, -mrg. Radial pulses intact and symmetrical. Abdominal: Nontender, nondistended, soft. BS present. CRANIAL NERVES: II: Pupils equal and reactive, no relative afferent pupillary defect, no VF cuts III, IV, : EOM intact, no gaze preference or deviation, no nystagmus. V: normal sensation in V1, V2, and V3 segments bilaterally VII: no asymmetry, no nasolabial fold flattening VIII: normal hearing to speech IX, X: normal palatal elevation, no uvular deviation XI: 5/5 head turn and 5/5 shoulder shrug bilaterally XII: midline tongue protrusion MOTOR: RUE: 5/5 Shoulder internal rotation, external rotation, flexion, extension, abduction, adduction 5/5 Elbow flexion/extension, wrist flexion/extension 5/5 diesel electrician strength, finger flexion/extension, interosseus LUE: 5/5 Shoulder internal rotation, external rotation, flexion, extension, abduction, adduction 5/5 Elbow flexion/extension, wrist flexion/extension 5/5 diesel electrician strength, finger flexion/extension, interosseus RLE: 5/5 to hip flexion/extension, knee flexion/extension, ankle dorsiflexion/aspen ntarflexion LLE: 5/5 to hip flexion/extension, knee flexion/extension, ankle dorsiflexion/plantarflexion REFLEXES: 2/4 biceps, and achilles DTR without asymmetry. No clonus. SENSORY: Normal to touch in distal upper and lower extremities without deficit or asymmetry Principal Diagnosis Hypercalcemia, acute kidney injury Discharge Exam Constitutional well developed and well nourished; no acute distress and not ill appearing ENMT external ear and nose normal, oropharynx normal Neck trachea midline, no thyromegaly Respiratory normal respiratory effort, lungs clear to auscultation Cardiovascular RRR, no murmur, no edema Gastrointestinal (Abdomen) normal bowel sounds, soft, nontender, no hepatosplenomegaly Musculoskeletal no cyanosis or clubbing, extremities motor strength 5/5 Skin no rashes, warm and dry Neurologic patellar DTR's 2+ bilat, sensation intact and PERRL, EOMI, accommodation nl, no face palsy, no dysarthria CN's II-XI intact bilaterally Psychiatric A+Ox3, euthymic affect Discharge Data Allergies Allergy/AdvReac Type Severity Reaction Status Date / Time morphine AdvReac Severe N/V Verified 01/23/20 17:10 Consultations 01/23/20 19:18 ED Decision to Admit Stat Hospital Course (1) Hypercalcemia: Sarah is a 39-year-old female with h/o thyroid cancer (s/p 3 rounds of I 131 and 3 surgical interventions therapy) and iatrogenic hypoparathyroidism/hypothyroidism (2/2 surgical removal) who was admitted to [facility] on 01/22 for hypercalcemia. Hypercalcemia Patient was admitted on 01/22 for hypercalcemia to 13.4; at that time she had dry mouth, fatigue, nausea, weakness, and paresthesias. The etiology is suspected to be excess repletion; she has been on calcium supplementation s/p iatrogenic hypoparathyroidism/hypothyroidism (s/p thyroid cancer treated with thyroidectomy). Her calcitriol had been increased from daily to twice daily 2 months prior, and she had also been taking Tums for heartburn symptoms. In the hospital, her calcitriol and calcium supplements were held, and the case was discussed with patient's family support worker (Dr. Toussaint). Patient was also treated with IV fluids. She clinically improved and her calcium normalized. Per family support worker recommendations, upon discharge her regimen included twice weekly calcium monitoring in addition to calcitriol daily (rather than twice daily), calcium carbonate 600mg mg 3 times daily (rather than 1000 mg 3 times daily), and calcium carbonate 200mg as needed for additional repletion based on her regular monitoring. Patient was discharged on hospital day 3, at which time she was asymptomatic, feeling "great", and eager to return home. Acute kidney injury Upon admission, patient was noted to have an acute kidney injury with a BUN/Cr of 32/2.32 (baseline Cr 0.9-1.0). Suspected etiology was hypercalcemia with possible contribution from dehydration. She was treated with Normosol-R 200mL/hr, and daily BMPs were trended. Her kidney function continued to improve. Upon discharge, her BUN/Cr was 21/1.87 and had been trending in the right direction. The importance of maintaining adequate hydration was reviewed with patient prior to discharge, and she voiced understanding at this time. Post-surgical hypothyroidism Patient's TSH on admission was 1.03, and her home Synthroid and Cytomel were continued during hospitalization. Her thyroid function was not otherwise an issue during her hospitalization. Hypertension Patient was hypertensive on admission with readings ranging from 150-170/80-100, with one notable outlier of 195/105. She did not have chest pain, shortness of breath, headache, or other overt symptoms of hypertensive urgency. Her home antihypertensives were continued, and her blood pressure trended towards normal. On the day of discharge, her pressures ranged from 130-153 / 7488. She was discharged without changes being made to her home antihypertensive regimen. FEN/GI: regular DVT prophylaxis: lovenox discontinued upon discharge Code status: Full code Disposition: discharge home today (2) Hypothyroid: (3) Parathyroid abnormality: (4) NANCY (acute kidney injury): Total Time Total Time Spent Total Time Spent (In Minutes): I spent 30 minutes seeing the patient and reviewing and preparing discharge examination. Discharge Plan Discharge Items Patient Disposition: Home - Self-Care Reason For Visit: HYPERCALCEMIA Discharge Diagnosis: Hypercalcemia, acute kidney injury Condition on Discharge: Good Activity: Resume your previous activity Non-emergency contact: Primary Care Provider Call non-emergency contact if: you have any medication questions and your symptoms worsen Follow-up/Referrals: PCPNO [Primary Care Provider] - Diet: Regular Addtl Attending Provider Instructions: You were admitted for hypercalcemia and acute kidney injury. We suspect this was due to accidental oversupplementation. You recovered well in the hospital after receiving IV fluids and having some adjustments made to your calcitriol and calcium supplementation regimen. It is very important that you follow-up with your family support worker and have your calcium monitored twice weekly as he has bettie mmended. The following adjustments were made to your calcium supplementation regimen: * Take calcitriol 0.5mcg by mouth daily (instead of twice daily) * Take calcium carbonate 600mg by mouth three times daily (instead of 1g three times daily) * Take calcium carbonate 200mg by mouth as needed for additional supplementation Continue all your other home medicines as prescribed. As we discussed, it is very important that you maintain adequate hydration to help your kidneys recover and for you to maintain a healthy electrolyte balance. Talk with your family support worker if you have specific questions regarding how much fluid intake is appropriate given how your body balance is electrolytes. If you have new or worsening symptoms, do not hesitate to call your family support worker or your primary care physician. If you experience an emergency, call 911 immediately or go to your nearest emergency department. Pending Studies at Discharge: No Stand-Alone Forms: My [facility] [employer], Smoking Cessation Medications and DC Order Prescriptions: Continued Mirena 20 mcg/24 hours (5 yrs) 52 mg intrauterine device 1 device IU CONTINOUS RF: 0 liothyronine [Cytomel] 5 mcg Tablet 10 mcg PO QAM RF: 0 metoprolol succinate 25 mg Tablet Extended Release 24 Hr 25 mg PO QAM RF: 0 levothyroxine 112 mcg Tablet 112 mcg PO QAM RF: 0 multivitamin Tablet 1 tab PO HS RF: 0 calcium carbonate [Calcium 600] 600 mg calcium (1,500 mg) Tablet 600 mg PO TID RF: 0 magnesium oxide 400 mg (241.3 mg magnesium) Tablet 400 mg PO TID RF: 0 calcium carbonate [Tums] 200 mg calcium (500 mg) Tablet,Chewable 200 mg PO DIRECTED PRN (Reason: EXTRA CALCIUM) RF: 0 loratadine 10 mg Tablet 10 mg PO DAILY RF: 0 Probiotic 10 billion cell Capsule 10,000 mmu cells PO HS RF: 0 Changed calcitriol 0.5 mcg capsule 0.5 mcg PO DAILY Qty: 0 RF: 0 Discharge Orders: Discharge Order (Routine); Ordered 01/25/20 Ordered By: Sanjiv Virk Admission Data Admit Date/Time: 01/23/20 20:51 Attending Provider: Anuj Ulloa Admit Provider: Jignesh Plascencia Primary Care Provider: PCP,NO Other Providers: Kimmy Munoz Other Interventions: Discharge Summary Assessment (RN) Last Done: 01/25/20 13:32 Supervising Physician Co-Signing Physician Notes I also saw the patient with the resident physician and confirmed figueredo portions of the clinical history and physical examination. I agree with the impression and plan as noted in the resident documentation. Exam Alert and oriented. No complaints this morning. She is afebrile. 140/81, 86, 20, 36.8. 92% on room air Cardiovascular regular rate and rhythm. No murmurs appreciated. Lungs clear throughout. Extremities without edema Data BUN 21, creatinine 1.87. Sodium 139, potassium 3.6. Calcium 8.8, phosphorus 2.7, magnesium 2.1. IMPRESSION/PLAN Hypercalcemia NANCY Dehydration Agree with plan to discharge patient today with BMP twice weekly, with next BMP on Monday or Monday. Patient is hoping to travel next week; I think this is reasonable as long as she can get the blood work completed and sent back to her family support worker. Discussed oral hydration, especially over the next 3 to 4 days. Resident Activity Tracking Resident Involvement: Resident Care Provided Care Provided: Adult [facility]
== END 2020-01-25 13:47 | disposition home or self-care (01) | DRG 641 ==
LOC: ED 15:59 → 2N 20:51 → SUATTDRO 20:51 → 2N 22:15